=== PATIENT | female | born 1980 | race Caucasian/White ===

== ENCOUNTER → 2024-02-16 | Outpatient (CLI) | payer BC ==
[2024-02-16 08:17] LABS: Urine Bacteria None Seen /hpf (None Seen); Urine WBC None Seen /hpf (0 - 5)
[2024-02-16 08:25] LABS: Basophils # (auto) 0 10 ^3/uL (0-0.2); Basophils % (auto) 0.6 % (0.0-2.0); Eosinophils # (auto) 0.1 10 ^3/uL (0-0.8); Eosinophils % (auto) 2.1 % (0.0-7.0); Hemoglobin 14.5 g/dL (12.2-16.2); Lymphocytes # (auto) 1.8 10 ^3/uL (0.4-5.4); Lymphocytes % (auto) 29.1 % (10.0-50.0); Mean Corpuscular Hemoglobin 31.8 pg (28.0-32.0); Mean Corpuscular Hgb Conc. 34.6 g/dL (32.0-36.0); Monocytes # (auto) 0.5 10 ^3/uL (0-1.3); Monocytes % (auto) 7.6 % (0.0-12.0); Neutrophils # (auto) 3.8 10 ^3/uL (1.6-8.6); Neutrophils % (auto) 60.6 % (37.0-80.0); Platelet Count (auto) 256 10^3/uL (140-450); Red Blood Cells 4.57 10^6/uL (4.0-5.20); Red Cell Distribution Width 13.5 % (11.8-14.3); White Blood Cell 6.3 10^3/uL (4.4-10.8)
[2024-02-16 08:39] LABS: Urine Blood Negative /uL (Negative); Urine Clarity Clear (Clear); Urine Color Colorless (Yellow); Urine Protein, UAD Negative (Negative); Urine Specific Gravity 1.012 (1.001-1.035); Urine Urobilinogen Normal (Negative); Urine pH 5.5 (5.0-9.0)
[2024-02-16 09:00] LABS: Alanine Aminotransferase 14 U/L (7-40); Albumin 4.5 g/dL (3.2-4.8); Alkaline Phosphatase 86 U/L (46-116); Anion Gap 6 (5-15); Aspartate Aminotransferase 15 U/L (13-40); Blood Urea Nitrogen 13 mg/dL (9-23); Calcium 9.7 mg/dL (8.7-10.4); Carbon Dioxide 25 mmol/L (20-31); Chloride 110 mmol/L (98-107); Glucose 90 mg/dL (74-106); LDL Cholesterol 81 mg/dL (< 100); Magnesium 2.1 mg/dL (1.6-2.6); Potassium 4.2 mmol/L (3.5-5.1); Sodium 141 mmol/L (136-145); Triglycerides 97 mg/dL (< 150)
[2024-02-16 09:01] LABS: Bilirubin, Total 0.6 mg/dL (0.2-1.0); Cholesterol 156 mg/dL (< 200); HDL Cholesterol 58 mg/dL (40-59); Total Protein 7.2 g/dL (5.7-8.2)
[2024-02-16 09:02] LABS: % Iron Saturation 29.7 % (15-50)
[2024-02-16 09:04] LABS: Free T3 2.93 pg/mL (2.3-4.2); Free T4 (Free Thyroxine) 0.92 ng/dL (0.89-1.76); T3 Total 0.99 ng/mL (0.60-1.81)
[2024-02-16 09:20] LABS: Uric Acid 5.5 mg/dL (3.1-7.8)
== END | disposition home or self-care (01) ==
LOC: LAB 07:58
PROVIDERS: ATTEND Family Medicine
DX: R68.82 Decreased libido (principal); R45.86 Emotional lability; R42 Dizziness and giddiness; Z00.00 Encounter for general adult medical examination without abnormal findings; R45.82 Worries
CPT/HCPCS: 36415; 80053; 80061; 81001; 82306; 82607; 82670; 82672; 83036; 83540; 83550; 83735; 84403; 84439; 84443; 84480; 84481; 84550; 85025; 87086